=== PATIENT | male | born 1990 | race African-American/Black ===

== ENCOUNTER 2023-11-27 08:10 | Emergency (ER) | payer MEDICAID ==
[~2023-11-27] VITALS: Ht 175.3 cm; Wt 80.0 kg
[2023-11-27 08:25] VITALS: O2SAT 99
[2023-11-27] MEDS ORDERED: CELE100C MT (08:56)
[2023-11-27] MEDS: KETOROLAC 30MG/ML VIAL IM STA (09:52)
[2023-11-27 10:31] VITALS: BP 133/87; PULSE 82; RESP 16; TEMP 37.05852; O2SAT 99
== END 2023-11-27 12:32 | disposition home or self-care (01) ==
LOC: ER 08:10
DX: S80.02XA Contusion of left knee, initial encounter (principal); V89.2XXA Person injured in unspecified motor-vehicle accident, traffic, initial encounter; Y93.89 Activity, other specified; Y92.89 Other specified places as the place of occurrence of the external cause; Y99.8 Other external cause status
CPT/HCPCS: 99283; 96372; J1885